=== PATIENT | female | born 1970 | race Caucasian/White ===

== ENCOUNTER → 2020-06-26 | Outpatient (CLI) | payer OTHER ==
[~2020-06-26] VITALS: Ht 167.6 cm; Wt 61.2 kg
[~2020-06-26] MED LIST: ALEVE220 MG PO; AMITRIPTYLINE H10 M3 PO; CATAPRES-TTS 11 EACH TRANSDERM
[2020-06-26 13:47] VITALS: BP 154/89
--- NOTE | 2020-06-26 13:53 | NUR ---
Pain Clinic Assessment: 1. History of Osteoarthritis: Not Applicable History of Rheumatoid Arthritis: Not Applicable 2. Height: 5 ft. 6 in. 167.6 cm. Weight: 135.0 lb. oz. 61.236 kg. Patient's BMI: 21.8 3. Vital Signs: BP: 154/89 Pulse: 56 Resp: 16 Temp: 02 Sat: 100 ECG Mon: 4. Pain Intensity: 1-2 5. Fall Risk: Dizziness: N Needs help standing or walking: N Fallen in the last 3 months: N Fall risk comments: 6. Patient on Blood Thinner: None 7. History of Hypertension: Y 8. Opioid Therapy greater than 6 weeks: N Opiate Contract Signed: 9. Risk Assessment Tool Provided: 10. Functional Assessment Tool: LOW 11. Recreational Drug Use: Never Drug Type: Tobacco Use: Never Smoker Tobacco Type: Amount or Packs/day: How Many Years: Alcohol Use: Yes Frequency: Weekly Quant: 1-2
== END ==
LOC: PAIN 06:57
PROVIDERS: ATTEND Anesthesiology Pain Medicine
DX: G89.4 Chronic pain syndrome (principal); M77.12 Lateral epicondylitis, left elbow; I10 Essential (primary) hypertension; Z72.89 Other problems related to lifestyle; Z79.891 Long term (current) use of opiate analgesic; Z90.49 Acquired absence of other specified parts of digestive tract

== ENCOUNTER → 2020-07-10 | Outpatient (CLI) | payer OTHER ==
[~2020-07-10] VITALS: Ht 167.6 cm; Wt 64.7 kg
[~2020-07-10] MED LIST changes: +NEURONTIN 400M400 M2 PO; +TRAMADOL 50 MG50 MG PO
[2020-07-10 09:27] VITALS: BP 138/86
--- NOTE | 2020-07-10 09:37 | NUR ---
Pain Clinic Assessment: 1. History of Osteoarthritis: Not Applicable History of Rheumatoid Arthritis: Not Applicable 2. Height: 5 ft. 6 in. 167.6 cm. Weight: 142.6 lb. oz. 64.683 kg. Patient's BMI: 23.0 3. Vital Signs: BP: 138/86 Pulse: 73 Resp: 16 Temp: 02 Sat: 100 ECG Mon: 4. Pain Intensity: 1 5. Fall Risk: Dizziness: N Needs help standing or walking: N Fallen in the last 3 months: N Fall risk comments: 6. Patient on Blood Thinner: None 7. History of Hypertension: Y 8. Opioid Therapy greater than 6 weeks: N Opiate Contract Signed: 9. Risk Assessment Tool Provided: 10. Functional Assessment Tool: LOW 11. Recreational Drug Use: Never Drug Type: Tobacco Use: Never Smoker Tobacco Type: Amount or Packs/day: How Many Years: Alcohol Use: Yes Frequency: Weekly Quant: 1
== END ==
LOC: PAIN 06:50
PROVIDERS: ATTEND Anesthesiology Pain Medicine
DX: G89.4 Chronic pain syndrome (principal); M77.12 Lateral epicondylitis, left elbow